=== PATIENT | male | born 1940 | race Caucasian/White ===

== ENCOUNTER 2018-04-10 07:41 | Observation (INO) ==
[2018-04-10 08:12] LABS: Basophils # 0.1 K/mm3 (0-0.2); Basophils % 0.6 % (0.1-2.0); Eosinophils # 0.4 K/mm3 (0.0-0.4); Eosinophils % 3.6 % (0.1-12.0); Hematocrit 44.3 % (42.0-52.0); Hemoglobin 14.3 g/dL (14.1-18.0); Lymphocytes # 1.6 K/mm3 (0.7-4.5); Lymphocytes % 15.8 K/mm3 (10-50); Mean Corpuscular HGB Conc 32.2 g/dL (31.8-35.4); Mean Corpuscular Hemoglobin 31.9 pg (27.0-31.2); Mean Corpuscular Volume 99.1 fl (80-94); Mean Platelet Volume 7.8 fl (7.4-10.4); Monocytes # 0.5 K/mm3 (0.1-1.0); Monocytes % 4.6 % (1.7-9.3); Neutrophils # 7.5 K/mm3 (1.8-7.8); Neutrophils % 75.5 % (37.0-80.0); Platelet Count 349 K/mm3 (142-424); Red Blood Count 4.47 M/mm3 (4.60-6.20); Red Cell Distribution Width 13.1 % (11.5-17.5); White Blood Count 9.9 K/mm3 (4.8-10.8)
[2018-04-10 08:39] LABS: Albumin Level 3.3 gm/dL (3.4-5.0); Albumin/Globulin Ratio 0.8 (1.1-1.8); Bilirubin,Total 0.4 mg/dL (0.2-1.0); Calcium 8.4 mg/dL (8.5-10.1); Globulin 4.2 gm/dl (1.3-3.2); Total Protein,Serum 7.5 gm/dL (6.4-8.2)
--- NOTE | 2018-04-10 08:43 | Emergency Department Note ---
ED Disposition Clinical Impression: Troponin level elevated Disposition: Admitted As Inpatient Condition on Discharge: Good Instructions: DI for Low Back Pain Referrals: Provider,Referral, [Primary Care Provider] - - Critical Care Critical Care Time: No Attestation: On 04/10/18, the high probability of a clinically significant, sudden or life threatening deterioration of the following system(s) required my full and direct attention, intervention and personal management. The time I documented below is in addition to time spent performing reported procedures but includes the following listed in this critical care notation. Medical Decision Making - Medical Records Medical records reviewed: Yes: I reviewed the patient's medical records. - Chase Inquiry Pt receiving controlled substance: No Vital Signs: 04/10/18 07:41 04/10/18 07:53 04/10/18 08:37 Temperature 98.2 F Temperature Source Oral Pulse Rate [Right Radial] 59 L 60 57 L Respiratory Rate 16 Blood Pressure [Right Arm] 157/83 157/83 131/67 Blood Pressure Mean [Right Arm] 107 107 88 Blood Pressure Source [Right Arm] Automatic Cuff Automatic Cuff Automatic Cuff Blood Pressure Position [Right Arm] Sitting Sitting Sitting 02 Sat by Pulse Oximetry 96 97 98 Oxygen Delivery Method Room Air 04/10/18 09:26 Temperature Temperature Source Pulse Rate [Right Radial] 57 L Respiratory Rate Blood Pressure [Right Arm] 145/84 Blood Pressure Mean [Right Arm] 104 Blood Pressure Source [Right Arm] Automatic Cuff Blood Pressure Position [Right Arm] Sitting 02 Sat by Pulse Oximetry 98 Oxygen Delivery Method - Lab Data Lab results reviewed: Yes: I reviewed the patient's lab results. Lab Results 04/10/18 07:55: WBC 9.9, RBC 4.47 L, Hgb 14.3, Hct 44.3, MCV 99.1 H, MCH 31.9 H, MCHC 32.2, RDW 13.1, Plt Count 349, MPV 7.8, Neut % (Auto) 75.5, Lymph % (Auto) 15.8, [place] % (Auto) 4.6, Eos % (Auto) 3.6, Baso % (Auto) 0.6, Neut # (Auto) 7.5, Lymph # (Auto) 1.6, [place] # (Auto) 0.5, Eos # (Auto) 0.4, Baso # (Auto) 0.1 04/10/18 07:55: Sodium 142, Potassium 4.0, Chloride 106, Carbon Dioxide 30, Anion Gap 10.0, BUN 18, Creatinine 1.26, Estimated Creat Clear 46, Estimated GFR 55 L, Est GFR ( Amer) 67, Glucose 116 H, Calcium 8.4 L, Total Bilirubin 0.4, AST 16, ALT 21, Alkaline Phosphatase 59, Total Creatine Kinase 147, CK-MB (CK-2) 4.0 H, CK-MB (CK-2) Rel Index 2.7, Troponin I 0.49 H, Total Protein 7.5, Albumin 3.3 L, Globulin 4.2 H, Albumin/Globulin Ratio 0.8 L 04/10/18 07:55: D-Dimer 572 H* Result diagrams: 04/10/18 07:55 04/10/18 07:55 Orders (Tests/Meds): ED MEDICATIONS Generic Name Dose Route Start Last Admin Trade Name Freq PRN Reason Stop Dose Admin Diphenhydramine HCl 50 mg 04/10/18 10:23 Benadryl 50mg/1ml Vial IV 04/10/18 10:24 ONCE ONE Fentanyl Citrate 25 mcg 04/10/18 10:23 Fentanyl 250mcg/5ml Vial IV 04/11/18 10:23 Q3MINP PRN Moderate to Severe Pain Fentanyl Citrate 50 mcg 04/10/18 10:23 Fentanyl 250mcg/5ml Vial IV 04/11/18 10:23 Q3MINP PRN Moderate to Severe Pain Flumazenil 0.2 mg 04/10/18 10:23 Romazicon 0.1mg/Ml 5ml Vial IV 04/10/18 23:00 NEEDED PRN Sedation Heparin Sodium (Porcine) 10,000 unit 04/10/18 10:23 Heparin 1,000 Units/Ml 10ml Vial (Queen Producer) IV 04/10/18 14:23 NEEDED PRN Emergency Box Chemotherapist Heparin Sodium/Sodium Chloride 3,000 unit 04/10/18 10:23 Heparin 1000 Units/500ml Ns (Queen Producer) IV 04/10/18 10:24 ONCE ONE Sodium Chloride 1,000 mls @ 25 mls/hr 04/10/18 10:30 Sod Chlor 0.9% 1000ml Bag IV 04/11/18 10:23 .Q25H MAURISIO Lidocaine HCl 20 ml 04/10/18 10:23 Lidocaine 1% 20ml Mdv IJ 04/10/18 10:24 ONCE ONE Midazolam HCl 1 mg 04/10/18 10:23 Midazolam 2mg/2ml Vial IV 04/11/18 10:23 Q3MINP PRN Sedation Midazolam HCl 1 mg 04/10/18 10:23 Midazolam 1mg/Ml 5ml Vial IV 04/11/18 10:23 Q3MINP PRN Sedation Naloxone HCl 0.4 mg 04/10/18 10:23 Narcan 0.4mg/Ml Vial IV 04/11/18 10:23 Q5MINP PRN Decreased respirations Nitroglycerin 800 mcg 04/10/18 10:23 Nitroglycerin 800mcg/8ml Syr (Queen Producer) IV 04/11/18 10:23 NEEDED PRN Emergency Box Chemotherapist Verapamil HCl 2.5 mg 04/10/18 10:23 Verapamil 2.5mg/Ml 2ml Vial IV 04/10/18 10:24 ONCE ONE Discontinued Medications Generic Name Dose Route Start Last Admin Trade Name Freq PRN Reason Stop Dose Admin Aspirin 324 mg 04/10/18 09:39 04/10/18 09:53 Aspirin 81mg Chewable Tablet PO 04/10/18 09:40 324 mg ONCE ONE Administration Iopamidol 70 ml 04/10/18 10:28 04/10/18 10:31 [id number]; 75ml Vial IV 04/10/18 10:29 70 ml ONCE ONE Administration Protocol Sodium Chloride 50 ml 04/10/18 10:28 04/10/18 10:29 Rad-Ns 50ml Vial IV 04/10/18 10:29 50 ml ONCE ONE Administration Sodium Chloride 10 ml 04/10/18 10:28 04/10/18 10:30 Rad-Saline Flush 10ml Syringe IV 04/10/18 10:29 10 ml ONCE ONE Administration ORDERS Category Date Time Status CTA Chest [CT angio chest] Stat Cat Scan 04/10/18 09:39 Ordered Cardiology Consult [Consult to Cardiology] [CONS] Cons 04/10/18 09:03 Active Routine 12-lead EKG Request [ECG Request by /Nse] Stat Y 04/10/18 07:51 Ordered - Radiology Data #1 Image(s): Chest Image Reviewed: Yes I discussed the image results w/the radiologist Medical Decision Narrative: consult d/w Dr Connor (Katie), admit d/w Dr Carrera Back Pain HPI - General Chief Complaint: Back Pain/Injury Stated Complaint: back pain Time Seen by Provider: 04/10/18 08:39 Mode of Arrival: Ambulatory Limitations: No Limitations Description of Symptoms (Recalled from ER Triage Doc. by RN): Pt reports back pain across the top of his back, but mostly in the middle (spine area). States pain did not wake him up from sleep, states he was awake and could not get comfortable to fall back to sleep. Pt denies chest symptoms, denies n/v, denies soa. Describes pain as a dull pain. Denies injury. Denies chronic back/neck issues. States movement does not aggrevate pain. - History of Present Illness HPI Narrative: mild to mod upper back ache today at 5am is nonrad and gone now, no injury, no fever, not positional or pleuritic, speech fluent, no rash - Related Data Home Medications Medication Instructions Recorded Confirmed Meloxicam [Mobic] 15 mg PO DAILY 04/10/18 04/10/18 Thyroid,Pork [[place] Thyroid] 60 mg PO DAILY 04/10/18 04/10/18 Allergies Allergy/AdvReac Type Severity Reaction Status Date / Time No Known Allergies Allergy Verified 04/10/18 07:51 [facility] History I have reviewed the patient's past medical history: Yes Laterality Cases: Bilateral: Tonsillectomy - Social History Alcohol Intake: current Alcohol Intake Frequency:: 3 or more drinks per day - Psychiatric History Expresses thoughts of harming self/others: None Suicide Plan Description: No Plan ROS Obtained: Yes Systems reviewed as appropriate & no additional complaints - Constitutional Constitutional: Denies fever(s) - Eyes Eyes: Denies change in vision - ENT Ears, Nose, Mouth, and Throat: Denies dizziness, Denies pain with swallowing - Cardiovascular Cardiovascular: Denies chest pain - Respiratory Respiratory: No dyspnea - Gastrointestinal Gastrointestingal: Denies: abdominal pain, vomiting - Genitourinary Male Genitourinary: Denies flank pain - Musculoskeletal Musculoskeletal: Reports back pain - Integumentary/Breasts Skin/Breast: Denies rash - Neurologic Neurologic: Denies confusion, Denies dizziness, Denies focal weakness Physical Exam - General General appearance: alert, in no apparent distress - Head Head exam: atraumatic - Eye Eye exam: Present: PERRL, EOMI - ENT ENT exam: Present: normal oropharynx - Neck Neck exam: Present: normal inspection, full ROM. Absent: tenderness, meningismus - Chest Chest inspection: Present: normal inspection. Absent: tenderness - Respiratory Respiratory exam: Present: normal lung sounds bilaterally. Absent: respiratory distress - Cardiovascular Cardiovascular exam: Present: regular rate, normal rhythm - Abdominal Exam Abdominal exam: Present: soft. Absent: tenderness - Extremities Exam Extremities exam: Present: full ROM. Absent: tenderness - Back Exam Back exam: Present: normal inspection. Absent: CVA tenderness (R), CVA te nderness (L) - Neurological Exam Neurological exam: Present: alert, oriented X3 - Psychiatric Psychiatric exam: Present: normal affect, normal mood - Skin Skin exam: Present: warm, dry, intact
--- NOTE | 2018-04-10 11:23 | Consult Report ---
Addendum entered and electronically signed by Katie Cochran APRN 04/10/18 15:03: Left heart catheterization performed by Dr. Connor. Left heart cath revealed one drug-eluting stent to the Circumflex. Recommend Brilinta 90mg BID and Aspirin 81mg daily for dual therapy. Recommend Atorvastatin 40mg daily for hyperlipidemia. Would recommend a beta rony and carlos manuel inhibitor but at this time, will defer due to low heart rate and blood pressure. Recommend cardiac rehab once he returns to [place]. 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 Original Note: History of Present Illness Consult date: 04/10/18 Requesting physician: Nic Reich (Elevated troponin) Chief complaint: Back Pain Additional Medical History:: 1. Non-STEMI NH a. Trop. 0.49 b. Class III Angina symptoms 2. Mid Back Pain a. Awoke from sleep. b. Severe pain 9/10. c. Lasting from 2 hours with no relief. 3. Elevated D-Dimer a. D-Dimer-572 4. Hypothyroidism 5. Arthritis 6. Former smoker a. Quit years ago (uncertain of years) 7. Alcohol dependence a. 3-4 beers a day History of present illness: 77-year-old white male presented to the emergency room with severe mid back pain for the past 2 hours. Patient stated that the pain in his back woke him up from sleep around 5:00 this a.m. Patient stated he tried walking it off but was having no relief. Patient denies any injury to the back. Patient denies chest pain or shortness of breath. Patient stated he has no known coronary history. Patient stated he is physically active and is evaluated by his doctor every 6 months. Patient is not a smoker nor does he take illegal drugs. He has known history of hypothyroidism and arthritis. Pt is in [facility]. Pt lives in [place]. Cardiology was consulted due to elevated troponin of 0.49. Upon initial labs, d-dimer was also positive at 572. CT scan of the chest revealed: 1. No evidence of pulmonary embolus. 2. Hyperinflation with bronchial thickening suggesting COPD/small airway disease. 3. Small bilateral pulmonary nodules nonspecific the largest in the right apex 7 x 4 mm. Suggest six-month follow-up 4. Possible cholelithiasis Initial EKG revealed sinus bradycardia, nonspecific ST abnormality, abnormal ECG with a heart rate of 56 bpm. Initial CXR revealed COPD with no acute findings. VS stable. Due to elevated troponin and mid back pain (Class III Angina), left heart catheterization was recommended. Discussed with pt the benefits and risk of left heart catheterization with right wrist access. Pt agreeable to procedure. Discussed plan of care with Dr. Reich ([facility]). 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 [facility] History Other Medical History: Reports: Arthritis, Hypothyroidism Laterality Cases: Bilateral: Tonsillectomy Amputation: No Fractures: No - *Social History Smoking Status: Former smoker Alcohol Intake: current Alcohol Intake Frequency:: 3 or more drinks per day - Psychiatric History Expresses thoughts of harming self/others: None Suicide Plan Description: No Plan Meds Home Medications Medication Instructions Recorded Confirmed Type Meloxicam [Mobic] 15 mg PO DAILY 04/10/18 04/10/18 History Thyroid,Pork [[place] Thyroid] 60 mg PO DAILY 04/10/18 04/10/18 History Allergies Allergy/AdvReac Type Severity Reaction Status Date / Time No Known Allergies Allergy Verified 04/10/18 07:51 Review of Systems - Review of Systems Review of systems:: pertinent systems reviewed and negative unless documented below - Constitutional Reports fatigue - *Cardiovascular Denies chest pain, Denies shortness of breath, Denies shortness of breath with activity, Denies leg swelling, Denies rapid, pounding, or irregular heartbeat, Denies radiating jaw, neck or arm pain - *Respiratory Denies cough, Denies shortness of breath, Denies shortness of breath with activity - *Gastrointestinal Denies abdominal pain, Denies vomiting - *Genitourinary Denies difficulty urinating - *Musculoskeletal Reports back pain, Denies abnormal walking - *Neurologic Denies confusion, Denies dizziness, Denies localized weakness - Psychiatric Denies abnormal sleep pattern - Endocrine Denies cold intolerance, Denies excessive sweating, Denies increased urination Exam Vital signs and Labs for Last 24 Hours: Temp Pulse Resp BP Pulse Ox 98.2 F 56 L 16 125/73 97 04/10/18 07:41 04/10/18 10:46 04/10/18 07:41 04/10/18 10:46 04/10/18 10:46 Laboratory Results - last 24 hr 04/10/18 07:55: WBC 9.9, RBC 4.47 L, Hgb 14.3, Hct 44.3, MCV 99.1 H, MCH 31.9 H, MCHC 32.2, RDW 13.1, Plt Count 349, MPV 7.8, Neut % (Auto) 75.5, Lymph % (Auto) 15.8, [place] % (Auto) 4.6, Eos % (Auto) 3.6, Baso % (Auto) 0.6, Neut # (Auto) 7.5, Lymph # (Auto) 1.6, [place] # (Auto) 0.5, Eos # (Auto) 0.4, Baso # (Auto) 0.1 04/10/18 07:55: Sodium 142, Potassium 4.0, Chloride 106, Carbon Dioxide 30, Anion Gap 10.0, BUN 18, Creatinine 1.26, Estimated Creat Clear 46, Estimated GFR 55 L, Est GFR ( Amer) 67, Glucose 116 H, Calcium 8.4 L, Total Bilirubin 0 .4, AST 16, ALT 21, Alkaline Phosphatase 59, Total Creatine Kinase 147, CK-MB (CK-2) 4.0 H, CK-MB (CK-2) Rel Index 2.7, Troponin I 0.49 H, Total Protein 7.5, Albumin 3.3 L, Globulin 4.2 H, Albumin/Globulin Ratio 0.8 L 04/10/18 07:55: D-Dimer 572 H* I & O for Last 24 hours: Intake & Output 04/07/18 04/08/18 04/09/18 04/10/18 23:59 23:59 23:59 23:59 Weight 150 lb - Constitutional no acute distress, average body habitus, cooperative - *Routine HEENT Exam Head: Present: normocephalic Eye: Present: PERRL ENT: Present: mucous membranes moist - *Routine Neck Exam Present: supple, full ROM, normal carotid upstroke. Absent: JVD, carotid bruit - Routine Chest/Breast/Axilla Exam Chest wall: Absent: tenderness, pacemaker - *Routine Respiratory Exam Present: accessory muscle use, CTA bilaterally. Absent: wheezes, crackles - *Routine Cardiovascular Exam Present: RRR, Normal S1, Normal S2. Absent: murmur, gallop, rubs, irregular rhythm, JVD - *Routine Abdominal Exam Present: soft, normoactive bowel sounds. Absent: tenderness, distended, guarding - *Routine Extremities Exam Present: full ROM, pulses intact, normal capillary refill. Absent: cyanosis, clubbing, edema - Routine Back/Spine/Pelvis Exam Back/Spine: Present: full ROM. Absent: CVA tenderness - *Routine Skin Exam Present: intact, dry - *Routine Neurological Exam Present: alert, oriented X3, CN II-XII intact, normal reflexes, moving all extremities, hearing grossly intact, normal speech - Routine Psychiatric Exam Present: normal affect, normal thought process Assessment and Plan (1) Non-STEMI (non-ST elevated myocardial infarction) Current visit: Yes Status: Acute Category: Medical Code(s): I21.4 - Non-ST elevation (NSTEMI) myocardial infarction (2) COPD (chronic obstructive pulmonary disease) Current visit: Yes Status: Acute Category: Medical Code(s): J44.9 - Chronic obstructive pulmonary disease, unspecified (3) Hypothyroidism Current visit: Yes Status: Acute Category: Medical Code(s): E03.9 - Hypothyroidism, unspecified (4) Troponin level elevated Current visit: Yes Status: Acute Category: Medical Code(s): R74.8 - Abnormal levels of other serum enzymes - Assessment and plan all Dx Assessment and Plan for all problems:: Plan: 1. Left heart catheterization today for Non-STEMI and Angina Class III symptoms. 2. Brilinta 180mg x 1 dose now. 3. Aspirin 324mg x1 dose (given in the ED per ED physician) 4. Will defer medication therapy until results of Left heart catheterization. 5. Obtain Echocardiogram to assess for LV function and valve status.
--- NOTE | 2018-04-10 16:21 | Pharmacy Consult Notes ---
[facility] Pharmacy VTE Monitoring - Patient Demographics Admission date: 04/10/18 Report Date: 04/10/18 Time: 16:20 Allergies/Adverse Reactions: Patient Allergies No Known Allergies Allergy (Verified 04/10/18 07:51) Height: 1.73 m Weight: 73.255 kg Patient Problems: Current Active Problems Troponin level elevated (Acute) Non-STEMI (non-ST elevated myocardial infarction) (Acute) COPD (chronic obstructive pulmonary disease) (Acute) Hypothyroidism (Acute) - VTE Risk Labs: VTE Related Lab Results Hgb 14.3 g/dL (14.1-18.0) 04/10/18 07:55 Hct 44.3 % (42.0-52.0) 04/10/18 07:55 Plt Count 349 K/mm3 (142-424) 04/10/18 07:55 BUN 18 mg/dL (7-18) 04/10/18 07:55 Creatinine 1.26 mg/dL (0.70-1.30) 04/10/18 07:55 Estimated Creat Clear 46 mL/min (0-300) 04/10/18 07:55 Was VTE Risk Assessment Performed: Yes VTE Score: 1 Clinical Trial Participant: No - Prophylaxis VTE Prophylaxis Ordered?: Yes Types of VTE Prophylaxis: TEDS Knee High Location of Applied Device: Refused
[2018-04-11 05:49] LABS: Basophils % 0.4 % (0.1-2.0); Eosinophils # 0.5 K/mm3 (0.0-0.4); Eosinophils % 6.4 % (0.1-12.0); Hematocrit 35.1 % (42.0-52.0); Lymphocytes # 1.5 K/mm3 (0.7-4.5); Lymphocytes % 17.7 K/mm3 (10-50); Mean Corpuscular HGB Conc 32.8 g/dL (31.8-35.4); Mean Corpuscular Hemoglobin 32.4 pg (27.0-31.2); Mean Platelet Volume 7.1 fl (7.4-10.4); Monocytes # 0.5 K/mm3 (0.1-1.0); Monocytes % 6.2 % (1.7-9.3); Neutrophils # 5.8 K/mm3 (1.8-7.8); Neutrophils % 69.3 % (37.0-80.0); Platelet Count 293 K/mm3 (142-424); Red Blood Count 3.55 M/mm3 (4.60-6.20); Red Cell Distribution Width 13.5 % (11.5-17.5); White Blood Count 8.4 K/mm3 (4.8-10.8)
[2018-04-11 06:06] LABS: Anion Gap 10.6 mEq/L (5-15); Calcium 7.8 mg/dL (8.5-10.1); Chol/HDL Ratio 2.7 (1-3.5); Potassium 3.6 mmoL/L (3.5-5.1)
[2018-04-11 06:10] LABS: Hemoglobin 11.7 g/dL (14.1-18.0)
--- NOTE | 2018-04-11 09:07 | Progress Note ---
Subjective Date: 04/11/18 Time: 08:52 Principal diagnosis: Non-STEMI NE Interval history: 77 year old male admitted to [facility] for Non-Stemi NE on 04/10/18. Pt had been experiencing mid back pain for 2 hours, which awoke him from sleep. Pt denied chest pain or shortness of breath. Pt had elevated troponin at 0.49. Pt underwent heart catheterization on 04/10/18 requiring drug-eluting stent placement to the Circumflex artery. Pt was started on Brilinta 90mg BID and Aspirin 81mg daily for dual therapy. Pt was also started on Atorvastatin 40mg nightly for Hyperlipidemia. LDL was 125. LDL goal<55. Due to his bradycardia and hypotension, a beta rony and carlos manuel inhibitor was not initiated. Pt is doing well this am. Pt is alert adn oriented to person, place and time. Sister at bedside. Pt denies chest pain or shortness of breath. Pt denies mid back pain. Pt stated he is feeling good and is ready to go home. VS stable. Pt remains in Sinus Bradycardia with heart rate of 58bpm. Denies pain at the right wrist cath site. Right wrist noted with dry dressing intact. Lungs sounds CTA. Echocardiogram revealed Moderate Aorta Insufficiency, mild Tricuspid and Mitral regurgitation with EF of 43-45%. Reviewed serial cardiac enzymes. These were elevated due to NE and placement of stent. Discussed with pt the importance of taking Brilinta and Aspirin daily due to NE and following up with his Mica Paster in one week in [place]. Case was discussed with Dr. Connor. Exam Vital signs and Labs for Last 24 Hours: Temp Pulse Resp BP Pulse Ox 98.4 F 58 L 19 87/49 96 04/11/18 04:00 04/11/18 04:00 04/11/18 04:00 04/11/18 04:00 04/11/18 08:00 Laboratory Results - last 24 hr 04/10/18 07:55: D-Dimer 572 H* 04/10/18 13:41: Activated Clotting Time > 400 H* 04/10/18 15:18: Troponin I 22.61 H 04/10/18 17:40: Troponin I 22.62 H 04/11/18 05:15: WBC 8.4, RBC 3.55 L, Hgb 11.7 L D, Hct 35.1 L, MCV 99.0 H, MCH 32.4 H, MCHC 32.8, RDW 13.5, Plt Count 293, MPV 7.1 L, Neut % (Auto) 69.3, Lymph % (Auto) 17.7, [place] % (Auto) 6.2, Eos % (Auto) 6.4, Baso % (Auto) 0.4, Neut # (Auto) 5.8, Lymph # (Auto) 1.5, [place] # (Auto) 0.5, Eos # (Auto) 0.5 H, Baso # (Auto) 0.0 04/11/18 05:15: Sodium 142, Potassium 3.6, Chloride 109 H, Carbon Dioxide 26, Anion Gap 10.6, BUN 17, Creatinine 1.20, Estimated Creat Clear 52, Estimated GFR 59, Est GFR ( Amer) 71, Glucose 100, Calcium 7.8 L, Triglycerides 51, Cholesterol 125 L, LDL Cholesterol 68, VLDL Cholesterol 10, HDL Cholesterol 47, Cholesterol/HDL Ratio 2.7 I & O for Last 24 hours: Intake & Output 04/08/18 04/09/18 04/10/18 04/11/18 23:59 23:59 23:59 23:59 Intake Total 244 / 244 360 / 360 Balance 244 / 244 360 / 360 Weight 161 lb 8 oz 161 lb 1 oz - Constitutional no acute distress, average body habitus - *Routine HEENT Exam Head: Present: normocephalic - *Routine Neck Exam Present: supple, full ROM, normal carotid upstroke. Absent: JVD, carotid bruit - Routine Chest/Breast/Axilla Exam Chest wall: Absent: tenderness, pacemaker - *Routine Respiratory Exam Present: accessory muscle use, CTA bilaterally. Absent: respiratory distress, wheezes - *Routine Cardiovascular Exam Present: RRR, Normal S1, Normal S2, bradycardia. Absent: murmur, gallop - *Routine Abdominal Exam Present: soft, normoactive bowel sounds. Absent: tenderness, distended - *Routine Extremities Exam Present: full ROM, pulses intact, normal capillary refill. Absent: cyanosis - Routine Back/Spine/Pelvis Exam Back/Spine: Present: full ROM. Absent: CVA tenderness - *Routine Skin Exam Present: intact, normal turgor - *Routine Neurological Exam Present: alert, oriented X3, CN II-XII intact, normal reflexes - Routine Psychiatric Exam Present: normal affect Progress Note: A&P (1) Non-STEMI (non-ST elevated myocardial infarction) Start date: 04/11/18 Status: Acute Current Visit: Yes (2) COPD (chronic obstructive pulmonary disease) Status: Acute Current Visit: Yes (3) Hypothyroidism Status: Acute Current Visit: Yes (4) Troponin level elevated Status: Acute Current Visit: Yes Assessment and Plan for All Diagnoses:: Plan: 1. Pt may be discharged home today. 2. Brilinta 90mg po twice daily and Aspirin 81mg po daily as dual therapy. 3. Atorvastatin 40mg po at night for Hyperlipidemia. 4. Will defer additional medication therapy to Mica Paster in [place]. 5. Discussed with pt, no lifting, swimming or golfing for one week. 6. Recommend cardiac rehab. 7. Cardiology clinic ([place]) follow up in one week. 8. Follow up with PCP ([place]) one week for COPD and Gallbaldder issues.
--- NOTE | 2018-04-11 09:43 | H&P/Discharge Summary ---
General - General Admission date:: 04/10/18 Discharge date: 04/11/18 *Admission Date: 04/10/18 *Chief complaint: chest pain *History of present illness: 77-year-old white male presented to the emergency room with severe mid back pain for the past 2 hours. Patient stated that the pain in his back woke him up from sleep around 5:00 this a.m. Patient stated he tried walking it off but was having no relief. Patient denies any injury to the back. Patient denies chest pain or shortness of breath. Patient stated he has no known coronary history. Patient stated he is physically active and is evaluated by his doctor every 6 months. Patient is not a smoker nor does he take illegal drugs. He has known history of hypothyroidism and arthritis. Pt is in [facility] visiting family. Pt lives in [place]. Cardiology was consulted due to elevated troponin of 0.49. Upon initial labs, d-dimer was also positive at 572. CT scan of the chest revealed: 1. No evidence of pulmonary embolus. 2. Hyperinflation with bronchial thickening suggesting COPD/small airway disease. 3. Small bilateral pulmonary nodules nonspecific the largest in the right apex 7 x 4 mm. Suggest six-month follow-up 4. Possible cholelithiasis Initial EKG revealed sinus bradycardia, nonspecific ST abnormality, abnormal ECG with a heart rate of 56 bpm. Initial CXR revealed COPD with no acute findings. VS stable. Due to elevated troponin and mid back pain (Class III Angina), left heart catheterization was recommended. Discussed with pt the benefits and risk of left heart catheterization with right wrist access. Pt agreeable to procedure. Discussed plan of care with Dr. Reich ([facility]). Pt will be admitted to personal lines sales rep admitting physician with cardiology consult. [facility] History I have reviewed the patient's past medical history: Yes Medical History: Reports:: Cancer (skin) Denies:: Diabetes Mellitus Type 1, Diabetes Mellitus Type 2, Internal Pacemaker, MRSA Other Medical History: Reports: Arthritis, Hypothyroidism Laterality Cases: Bilateral: Tonsillectomy Other Surgeries: No: Pacemaker Amputation: No Fractures: No - *Social History Educational Level: Completed College Smoking Status: Former smoker Tobacco Type: cigarettes # Packs/Day (cigarettes): 1 #Yrs smoked (if former smoker): 24 Smoking End Date: 1984 Alcohol Intake: current Alcohol Intake Frequency:: 3 or more drinks per day Occupational Status: retired Housing: house - Psychiatric History Expresses thoughts of harming self/others: None Suicide Plan Description: No Plan *Family Hx:: Hypertension Review of Systems - Review of Systems Review of systems:: unable to obtain, other, pertinent systems reviewed and negative unless documented below - Constitutional Denies chills - Eyes Denies change in vision - ENT Denies lip swelling - *Cardiovascular Reports chest pain, Reports chest pain at rest, Reports chest pain with activity - *Respiratory Reports shortness of breath - *Gastrointestinal Denies bloating - *Genitourinary Denies urinary frequency - *Musculoskeletal Denies decreased muscle mass - Integumentary/Breasts Denies dry skin, Denies rash - *Neurologic Denies abnormal walking, Denies confusion, Denies dizziness, Denies localized weakness - Psychiatric Denies anxiety - Endocrine Denies flushing - Hematologic/Lymphatic Denies enlarged lymph nodes - Allergic/Immunologic Denies lip swelling Exam Vital signs and Labs for Last 24 Hours: Temp Pulse Resp BP Pulse Ox 98.4 F 58 L 19 87/49 96 04/11/18 04:00 04/11/18 04:00 04/11/18 04:00 04/11/18 04:00 04/11/18 08:00 Laboratory Results - last 24 hr 04/10/18 13:41: Activated Clotting Time > 400 H* 04/10/18 15:18: Troponin I 22.61 H 04/10/18 17:40: Troponin I 22.62 H 04/11/18 05:15: WBC 8.4, RBC 3.55 L, Hgb 11.7 L D, Hct 35.1 L, MCV 99.0 H, MCH 32.4 H, MCHC 32.8, RDW 13.5, Plt Count 293, MPV 7.1 L, Neut % (Auto) 69.3, Lymph % (Auto) 17.7, [place] % (Auto) 6.2, Eos % (Auto) 6.4, Baso % (Auto) 0.4, Neut # (Auto) 5.8, Lymph # (Auto) 1.5, [place] # (Auto) 0.5, Eos # (Auto) 0.5 H, Baso # (Auto) 0.0 04/11/18 05:15: Sodium 142, Potassium 3.6, Chloride 109 H, Carbon Dioxide 26, Anion Gap 10.6, BUN 17, Creatinine 1.20, Estimated Creat Clear 52, Estimated GFR 59, Est GFR ( Amer) 71, Glucose 100, Calcium 7.8 L, Triglycerides 51, Cholesterol 125 L, LDL Cholesterol 68, VLDL Cholesterol 10, HDL Cholesterol 47, Cholesterol/HDL Ratio 2.7 I & O for Last 24 hours: Intake & Output 04/08/18 04/09/18 04/10/18 04/11/18 11:59 11:59 11:59 11:59 Intake Total 604 / 604 Balance 604 / 604 Weight 150 lb 161 lb 1 oz - *Routine HEENT Exam Head: Present: normocephalic Eye: Present: EOMI, PERRL ENT: Present: mucous membranes moist - *Routine Neck Exam Present: supple. Absent: lymphadenopathy - *Routine Respiratory Exam Present: CTA bilaterally - *Routine Cardiovascular Exam Present: RRR - *Routine Abdominal Exam Present: soft, normoactive bowel sounds. Absent: tenderness - *Routine Extremities Exam Absent: cyanosis, clubbing, edema - *Routine Skin Exam Present: warm. Absent: rash - *Routine Neurological Exam Present: alert, oriented X3 Hospital Course Hospital Course: cardiology consult: see note Plan: 1. Pt may be discharged home today. 2. Brilinta 90mg po twice daily and Aspirin 81mg po daily as dual therapy. 3. Atorvastatin 40mg po at night for Hyperlipidemia. 4. Will defer additional medication therapy to Director Funds Development in [place]. 5. Discussed with pt, no lifting, swimming or golfing for one week. 6. Recommend cardiac rehab. 7. Cardiology clinic ([place]) follow up in one week. 8. Follow up with PCP ([place]) one week for COPD and [place] issues cta IMPRESSION: 1. No evidence of pulmonary embolus. 2. Hyperinflation with bronchial thickening suggesting COPD/small airway disease. 3. Small bilateral pulmonary nodules nonspecific the largest in the right apex 7 x 4 mm. Suggest six-month follow-up 4. Possible cholelithiasis Results Labs on day of discharge: Labs from last 24 hours 04/11/18 04/11/18 04/10/18 05:15 05:15 17:40 WBC 8.4 RBC 3.55 L Hgb 11.7 L D Hct 35.1 L MCV 99.0 H MCH 32.4 H MCHC 32.8 RDW 13.5 Plt Count 293 MPV 7.1 L Neut % (Auto) 69.3 Lymph % (Auto) 17.7 [place] % (Auto) 6.2 Eos % (Auto) 6.4 Baso % (Auto) 0.4 Neut # (Auto) 5.8 Lymph # (Auto) 1.5 [place] # (Auto) 0.5 Eos # (Auto) 0.5 H Baso # (Auto) 0.0 Activated Clotting Time Sodium 142 Potassium 3.6 Chloride 109 H Carbon Dioxide 26 Anion Gap 10.6 BUN 17 Creatinine 1.20 Estimated Creat Clear 52 Estimated GFR 59 Est GFR ( Amer) 71 Glucose 100 Calcium 7.8 L Troponin I 22.62 H Triglycerides 51 Cholesterol 125 L LDL Cholesterol 68 VLDL Cholesterol 10 HDL Cholesterol 47 Cholesterol/HDL Ratio 2.7 04/10/18 04/10/18 15:18 13:41 WBC RBC Hgb Hct MCV MCH MCHC RDW Plt Count MPV Neut % (Auto) Lymph % (Auto) [place] % (Auto) Eos % (Auto) Baso % (Auto) Neut # (Auto) Lymph # (Auto) [place] # (Auto) Eos # (Auto) Baso # (Auto) Activated Clotting Time > 400 H* Sodium Potassium Chloride Carbon Dioxide Anion Gap BUN Creatinine Estimated Creat Clear Estimated GFR Est GFR ( Amer) Glucose Calcium Troponin I 22.61 H Triglycerides Cholesterol LDL Cholesterol VLDL Cholesterol HDL Cholesterol Cholesterol/HDL Ratio - Additional Comments rounded with alana all orders per alana DS: Diagnosis - Discharge Diagnosis (1) Non-STEMI (non-ST elevated myocardial infarction) Status: Acute (2) COPD (chronic obstructive pulmonary disease) Status: Acute (3) Hypothyroidism Status: Acute (4) Troponin level elevated Status: Acute Discharge Medications - Medications for Discharge Home Medication List at Discharge: No Action Meloxicam [Mobic] 15 mg PO DAILY Thyroid,Pork [[place] Thyroid] 60 mg PO DAILY Disposition Disposition: Home, Self-Care
--- NOTE | 2018-04-11 10:16 | Cardiology Report ---
PROCEDURE: 2-D M-mode and color Doppler study INDICATIONS FOR THE TEST: Chest pain+ COPD Heart Murmur Tobacco Smoking Palpitations Fatigue Syncope Edema Hypertension Diabetes Mellitus Rheumatic Fever SOB [place] Obesity Hyperlipidemia Family History HD Additional History Nonstemi, elevated troponins PATIENT INFORMATION HEIGHT: 68 WEIGHT: 150 GENDER: Male B/P: 110/70 2-D/M-MODE INTERPRETATION: 2-D MEASUREMENTS OBSERVED VALUES IN CMS Right Ventricular Dimension (RVDd) 2.6 Interventricular Septum (Thickness)(IVsd) 0.7 Left Ventricular Internal Dimensions(LVIDd) 5.0 Left Ventricular Posterior Wall (Thickness)(LVPWd) 0.7 Aortic Root 2.6 Aortic Cusp Separation 1.8 Left Atrial Dimensions (LAD) 2.4 2D 1. Left atrium is mildly enlarged, left ventricle is normal size, there is no concentric left ventricular hypertrophy, visually estimated ejection fraction 50%, there appears to be mild hypokinesis involving the inferolateral wall. 2. The right atrium and right ventricle are mildly enlarged with normal contractility. 3. The aortic valve is thickened and calcified leaflet continue to display good mobility. 4. The mitral and tricuspid valve leaflets are minimally thickened. 5. The pulmonic valve is poorly visualized. 6. No significant pericardial effusion noted. DOPPLER INTERROGATION: Doppler interrogation of the aortic, mitral and tricuspid valvular presence of mild aortic, mild mitral and moderate tricuspid regurgitation, calculated right ventricular systolic pressure is 44 mmHg consistent with moderate bony hypertension, grade 1 diastolic dysfunction seen without tissue Doppler evidence of raised left atrial pressure. CONCLUSION: 1. Biatrial enlargement, normal left ventricular size, visually estimated ejection fraction 50% with segmental wall motion abnormality described above, grade 1 diastolic dysfunction seen without tissue Doppler evidence of raised left atrial pressure. 2. Mildly enlarged right ventricle with normal contractility. 3. Mild aortic, mild mitral and moderate tricuspid regurgitation, calculated right ventricular systolic pressure is 44 mmHg consistent with moderate pulmonary hypertension. 4. No significant pericardial effusion noted.
== END 2018-04-11 10:11 | disposition home or self-care (01) ==
LOC: ER 07:41 → CATHLAB 10:42 → 2ND 14:31 → INTOOBSV 14:31
PROVIDERS: ADMIT Emergency Medicine; ATTEND Emergency Medicine